=== PATIENT | female | born 1995 ===

== ENCOUNTER → 2018-08-11 | Outpatient (CLI) | payer SELFPAY | LOC: LAB SHORT 15:18 → LAB 15:18 | DX: E55.9 Vitamin D deficiency, unspecified (principal) | CPT/HCPCS: 82306 ==

== ENCOUNTER → 2019-05-22 | Outpatient (CLI) | payer OTHER | LOC: LAB SHORT 12:48 → LAB 12:48 | PROVIDERS: Registered Nurse Community Health | DX: Z12.4 Encounter for screening for malignant neoplasm of cervix (principal) | CPT/HCPCS: G0123 ==